=== PATIENT | male | born 1990 | race Caucasian/White ===

== ENCOUNTER 2016-06-26 13:39 | Emergency (ER) | payer SELFPAY ==
[~2016-06-26] VITALS: Ht 172.7 cm; Wt 77.0 kg
[~2016-06-26 13:39] MED LIST: ALBU1AER INH; ALBU6.7H INH; BACT800T5 PO; BENZ100 PO; CEPH500C3 PO; MEDR4PAK3 PO; PRED20 PO; VENTAER INH; ZITH250T PO
[2016-06-26 13:42] VITALS: BP 128/73; PULSE 102; RESP 18; TEMP 98.3; O2SAT 98
[2016-06-26] MEDS ORDERED: SODIUM CHLOR 0.9% 1000 ML INJ 1,000 ML IV SCH (14:12)
[2016-06-26] MEDS ORDERED: ONDANSETRON HCL 4 MG/2 ML VIAL IVP ONE (14:15)
--- NOTE | 2016-06-26 14:16 | PD ---
HPI Chief Complaint: Medical Clearance Time Seen by Provider: 14:14 Travel History International Travel<30 days: No Contact w/Intl Traveler<30days: No Traveled to known affect area: No History of Present Illness HPI Patient is a 26-year-old male presenting with chief complaint of dizziness. 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 He states withdrawal symptoms started last evening of generalized abdominal cramping, nausea without vomiting, restlessness and anxiety and general body aches. This morning they were worsened. Has not been eating or drinking much secondary to nausea. He states that he went to a friend who gave him Suboxone, he took one dose at 10 AM this morning. Did not seem to help but he feels like it made him dizzy/ lightheaded and short of breath. He denies any chest pain, cough, wheezing or syncope. He denies tobacco, alcohol and other drug use. Denies any history of IVDA. PFSH Past Medical History Hx Anticoagulant Therapy: No Cardiovascular Problems: No Chemotherapy: No Cerebrovascular Accident: No Diabetes: No Diminished Hearing: No Respiratory: No Tetanus Vaccination: < 5 Years Social History Alcohol Use: No Tobacco Use: No Substance Use: Yes (OXYCODONE) Allergies-Medications (Allergen,Severity, Reaction): Coded Allergies: No Known Allergies (Verified , 06/26/16) Reported Meds & Prescriptions Reported Meds & Active Scripts Active Zofran Odt (Ondansetron Odt) 4 Mg Tab 4 Mg SL Q8HR PRN Review of Systems Except as stated in HPI: all other systems reviewed are Neg Physical Exam Narrative GENERAL: Well-developed and well-nourished adult male in no acute distress. SKIN: Warm and dry. Good turgor without tenting. HEAD: Normocephalic and atraumatic. EYES: PERRL bilaterally, 9mm. EOMI bilaterally. No injection or icterus present. No proptosis. Lids without edema or erythema. ENT: Buccal mucosa pink and slightly dry moist. Oropharynx free of erythema, tonsillar hypertrophy, masses, swelling, asymmetry and exudates. Uvula midline and airway patent. NECK: Supple, no midline tenderness, crepitus or step-offs. Trachea midline, no JVD. No cervical or facial lymphadenopathy. CARDIOVASCULAR: Regular rate(98) and rhythm without murmurs, rubs, clicks or gallops. Radial and posterior tibial pulses 2+ bilaterally. No pedal edema. Negative bilateral Homans sign. RESPIRATORY: Clear to auscultation bilaterally with symmetrical rise and fall, no distress or use of accessory muscles. GASTROINTESTINAL: Non-tender, non-distended. Normal bowel sounds all 4 quadrants. No masses or organomegaly present. MUSCULOSKELETAL: No gait disturbances. Patient freely moving all four extremities spontaneously. Extremities without clubbing, cyanosis, or edema. No obvious deformities. NEUROLOGIC: CN II-XII grossly intact. Awake and alert. Motor grossly within normal limits. Normal speech. PSYCHIATRIC: Appropriate mood and affect; insight and judgment normal. Data Data Last Documented VS Vital Signs Date Time Temp Pulse Resp B/P Pulse Ox O2 Delivery O2 Flow Rate FiO2 06/26/16 15:22 99 06/26/16 13:42 98.3 102 18 128/73 Room Air Orders Complete Blood Count With Diff (06/26/16 14:12) Comprehensive Metabolic Panel (06/26/16 14:12) Lipase (06/26/16 14:12) Iv Access Insert/Monitor (06/26/16 14:12) Ecg Monitoring (06/26/16 14:12) Oximetry (06/26/16 14:12) Ondansetron Inj (Zofran Inj) (06/26/16 14:15) Sodium Chlor 0.9% 1000 Ml Inj (Ns 1000 M (06/26/16 14:12) Electrocardiogram (06/26/16 14:12) Chest, Single Ap (06/26/16 14:12) Creatine Kinase (Cpk) (06/26/16 14:00) Labs Laboratory Tests Test 06/26/16 14:00 White Blood Count 12.1 TH/MM3 Red Blood Count 4.51 MIL/MM3 Hemoglobin 13.6 GM/DL Hematocrit 41.3 % Mean Corpuscular Volume 91.5 FL Mean Corpuscular Hemoglobin 30.2 PG Mean Corpuscular Hemoglobin 33.0 % Concent Red Cell Distribution Width 13.2 % Platelet Count 244 TH/MM3 Mean Platelet Volume 9.6 FL Neutrophils (%) (Auto) 86.0 % Lymphocytes (%) (Auto) 10.0 % Monocytes (%) (Auto) 3.6 % Eosinophils (%) (Auto) 0.3 % Basophils (%) (Auto) 0.1 % Neutrophils # (Auto) 10.4 TH/MM3 Lymphocytes # (Auto) 1.2 TH/MM3 Monocytes # (Auto) 0.4 TH/MM3 Eosinophils # (Auto) 0.0 TH/MM3 Basophils # (Auto) 0.0 TH/MM3 CBC Comment DIFF FINAL Differential Comment Sodium Level 139 MEQ/L Potassium Level 3.8 MEQ/L Chloride Level 104 MEQ/L Carbon Dioxide Level 25.6 MEQ/L Anion Gap 9 MEQ/L Blood Urea Nitrogen 13 MG/DL Creatinine 1.07 MG/DL Estimat Glomerular Filtration 82 ML/MIN Rate Random Glucose 140 MG/DL Calcium Level 10.0 MG/DL Total Bilirubin 0.3 MG/DL Aspartate Amino Transf 33 U/L (AST/SGOT) Alanine Aminotransferase 68 U/L (ALT/SGPT) Alkaline Phosphatase 108 U/L Total Creatine Kinase 181 U/L Total Protein 8.3 GM/DL Albumin 4.2 GM/DL Lipase 72 U/L MDM Medical Decision Making Medical Screen Exam Complete: Yes Emergency Medical Condition: Yes Differential Diagnosis Opioid withdrawal versus opioid abuse versus medication side effect versus dehydration versus electrolyte disturbance versus arrhythmia Narrative Course Patient's 26-year-old male who has been on methadone for one year due to oxycodone addiction who has been off of methadone for 3 days. Begin having withdrawal symptoms last evening. They were worsened this morning so he went and was given a Suboxone by a friend. This made him dizzy and short of breath. He took 1 oxycodone in an attempt to with himself of withdrawal symptoms but it has not helped. He is currently resting and appears comfortable. Heart rate upper limit of normal. He does have reduced oral intake secondary to nausea. Patient was given Zofran, 1 L normal saline bolus and her EKG, chest x- ray and labs. After medications in the saline bolus patient feels much improved. He has some jitteriness and anxiety still there nausea and dizziness has resolved. EKG shows no arrhythmias, normal intervals. No ST-T changes, normal sinus rhythm. The B DC 12.1, patient again reiterates no infectious symptoms. About conscious glucose 140, lipase 72, protein 8.3. CPK 181. As he feels much improved and symptoms are consistent and explained by opioid withdrawal patient is safe for discharge. We'll prescribe him Zofran to help with nausea while he is withdrawing and recommended [facility]. He states he will go to [facility] tomorrow or return to his methadone clinic.See discharge paperwork for further instructions. The plan was discussed with the patient who acknowledged their understanding and agreement. Reinforced the follow-up with primary care is critically important. Patient instructed on emergent conditions that should prompt return to ED. Diagnosis Primary Impression: Opioid abuse Additional Impressions: Dizziness Hyperglycemia Referrals: [facility] Patient Instructions: Dizziness (ED), General Instructions, Hyperglycemia, Non- Diabetic (ED), Opioid Dependence (ED), Opioid Withdrawal (ED) Additional Instructions: Take medication as prescribed Take lots of fluids and stay well-hydrated OTC Imodium if develops loose stools/diarrhea Do not take other people's medications as this is unsafe Follow-up with the [facility] for opioid treatment or return to your methadone clinic as discussed Follow-up with your PCP in one to 2 days Return to the ED for any acute worsening of symptoms Med/Other Pt SpecificInfo: Prescription(s) given Scripts Ondansetron Odt (Zofran Odt)4 Mg Tab4 Mg SL Q8HR PRN (Nausea/Vomiting) #12 TAB Prov:Domonique Hussein MD 06/26/16 Disposition: 01 DISCHARGE HOME Condition: Stable James Michael III Jun 26, 2016 14:16
[2016-06-26 14:37] LABS: AUTOMATED NEUTROPHIL # 10.4 TH/MM3 (1.8-7.7); BASOPHIL % 0.1 % (0.0-2.0); EOSINOPHIL % 0.3 % (0.0-4.0); HEMATOCRIT 41.3 % (39.0-51.0); HEMO FLAGS DIFF FINAL; LYMPHOCYTE # 1.2 TH/MM3 (1.0-4.8); MEAN CELL VOLUME 91.5 FL (80.0-100.0); MEAN CORPUSCULAR HEMOGLOBIN 30.2 PG (27.0-34.0); MONO % 3.6 % (0.0-8.0); PLATELET COUNT 244 TH/MM3 (150-450); RED BLOOD COUNT 4.51 MIL/MM3 (4.50-5.90); RED CELL DISTRIBUTION WIDTH 13.2 % (11.6-17.2); WHITE BLOOD COUNT 12.1 TH/MM3 (4.0-11.0)
[2016-06-26 14:45] LABS: ALT (GPT) 68 U/L (12-78); ANION GAP 9 MEQ/L (5-15); AST (GOT) 33 U/L (15-37); BICARBONATE 25.6 MEQ/L (21.0-32.0); BLOOD UREA NITROGEN 13 MG/DL (7-18); CHLORIDE 104 MEQ/L (98-107); GLOMERULAR FILTRATION RATE 82 ML/MIN (>89); POTASSIUM 3.8 MEQ/L (3.5-5.1); SODIUM (NA) 139 MEQ/L (136-145)
[2016-06-26 14:47] LABS: ALKALINE PHOSPHATASE 108 U/L (45-117); TOTAL BILIRUBIN ADULT 0.3 MG/DL (0.2-1.0)
--- NOTE | 2016-06-26 15:12 | RADRPT ---
EXAM DATE/TIME: 06/26/2016 14:10 [facility] COMPARISON: CHEST SINGLE AP, April 25, 2015, 14:24. INDICATIONS : Short of breath. MEDICAL HISTORY : None. SURGICAL HISTORY : None. ENCOUNTER: Initial ACUITY: 1 day PAIN SCORE: 0/10 LOCATION: Bilateral chest FINDINGS: A single view of the chest demonstrates the lungs to be symmetrically aerated without evidence of mas s, infiltrate or effusion. The cardiomediastinal contours are unremarkable. Osseous structures are intact. CONCLUSION: No acute disease. Jasper Harris MD FACR on June 26, 2016 at 15:11 Board Certified Radiologist. This report was verified electronically.
[2016-06-26 15:22] VITALS: O2SAT 99
[2016-06-26] MEDS ORDERED: ZOFR4TAB3 SL (16:06)
[2016-06-26 16:29] LABS: CREATINE KINASE 181 U/L (39-308)
--- NOTE | 2016-06-27 10:07 | EKG ---
Date Performed: 06/26/2016 Time Performed: 14:45:38 PTAGE: 26 years EKG: Sinus rhythm NONSPECIFIC T-WAVE ABNORMALITY BORDERLINE ECG NO PREVIOUS TRACING DOCTOR: Andrzej Ferrara Interpretating Date/Time 06/27/2016 10:03:34
== END 2016-06-26 16:46 | disposition home or self-care (01) ==
LOC: NEPA 13:39
DX: F11.10 Opioid abuse, uncomplicated (principal); R42 Dizziness and giddiness; R73.9 Hyperglycemia, unspecified; R94.31 Abnormal electrocardiogram [ECG] [EKG]
CPT/HCPCS: 71010; 80053; 82550; 83690; 85025; 93005; 96374; 99284; J2405; J7030